=== PATIENT | male | born 1975 | race Caucasian/White ===

== ENCOUNTER 2020-10-29 12:10 | Emergency (ER) | payer OTHER ==
[2020-10-29 12:27] VITALS: BP 114/69; PULSE 80; TEMP 97.6; BMI 27.1
[2020-10-29] MEDS ORDERED: KETOROLAC TROMETHAMINE 60 MG/2 ML VIAL IM ONE (12:54)
[2020-10-29] MEDS ORDERED: CYCLOBENZAPRINE HCL 10 MG TABLET (FP) PO ONE (12:55)
[2020-10-29] MEDS ORDERED: CYCLOBENZAPRINE HCL 10 MG TABLET (FP) ONE (12:56)
[2020-10-29] MEDS ORDERED: KETOROLAC TROMETHAMINE 60 MG/2 ML VIAL ONE (12:56)
== END 2020-10-29 13:12 | disposition home or self-care (01) ==
LOC: JERFT 12:10
PROC: 3E0233Z Introduction of Anti-inflammatory into Muscle, Percutaneous Approach (ICD-10-PCS; principal; 2020-10-29)
DX: M54.5 Low back pain (principal)
CPT/HCPCS: 99284-25

== ENCOUNTER 2021-10-27 12:48 | Emergency (ER) | payer OTHER ==
[2021-10-27 12:52] VITALS: BP 114/72; PULSE 78; TEMP 97.6; BMI 27.1
[2021-10-27] MEDS ORDERED: METHOCARBAMOL 500 MG TABLET PO ONE (13:10)
[2021-10-27] MEDS ORDERED: KETOROLAC TROMETHAMINE 30 MG/1 ML VIAL IM ONE (13:10)
[2021-10-27] MEDS ORDERED: KETOROLAC TROMETHAMINE 30 MG/1 ML VIAL ONE (13:22)
[2021-10-27] MEDS ORDERED: METHOCARBAMOL 500 MG TABLET ONE (13:22)
== END 2021-10-27 13:31 | disposition home or self-care (01) ==
LOC: JERFT 12:48
PROC: 3E0233Z Introduction of Anti-inflammatory into Muscle, Percutaneous Approach (ICD-10-PCS; principal; 2021-10-27)
DX: M54.05 Panniculitis affecting regions of neck and back, thoracolumbar region (principal)
CPT/HCPCS: 99284-25

== ENCOUNTER 2022-08-06 20:33 | Emergency (ER) | payer OTHER ==
[2022-08-06 20:38] VITALS: BP 126/86; PULSE 89; RESP 17; TEMP 98.1; BMI 27.1
[2022-08-06] MEDS ORDERED: LIDOCAINE PATCH REMOVAL MC SCH (22:00)
[2022-08-06] MEDS ORDERED: KETOROLAC TROMETHAMINE 30 MG/1 ML VIAL IM ONE (22:24)
[2022-08-06] MEDS ORDERED: diazePAM 5 MG TABLET PO ONE (22:25)
[2022-08-06] MEDS ORDERED: LIDOCAINE 5% TOPICAL PATCH TP ONE (22:25)
[2022-08-06] MEDS ORDERED: KETOROLAC TROMETHAMINE 30 MG/1 ML VIAL ONE (22:51)
[2022-08-06] MEDS ORDERED: diazePAM 5 MG TABLET ONE (22:51)
[2022-08-06] MEDS ORDERED: LIDOCAINE 5% TOPICAL PATCH ONE (22:51)
== END 2022-08-07 00:20 | disposition left against medical advice (07) ==
LOC: JER 20:33
PROC: 3E0233Z Introduction of Anti-inflammatory into Muscle, Percutaneous Approach (ICD-10-PCS; principal; 2022-08-06)
DX: M54.50 Low back pain, unspecified (principal)
CPT/HCPCS: 99284-25

== ENCOUNTER 2023-09-22 14:14 | Emergency (ER) | payer OTHER ==
[2023-09-22 15:38] VITALS: BMI 28.5
[2023-09-22] MEDS ORDERED: IBUPROFEN 400 MG TABLET (FP) PO PRN ×2 (16:25→16:34)
[2023-09-22] MEDS ORDERED: KETOROLAC TROMETHAMINE 30 MG/1 ML VIAL ONE (18:08)
[2023-09-22] MEDS ORDERED: ACETAMINOPHEN 500 MG TABLET (FP) ONE ×2 (18:10)
[2023-09-22] MEDS: KETOROLAC TROMETHAMINE 30 MG/1 ML VIAL IM ONE (18:15)
[2023-09-22] MEDS: ACETAMINOPHEN 500 MG TABLET (FP) PO ONE (18:17)
[2023-09-22 18:26] VITALS: BP 119/72; PULSE 72; RESP 18; TEMP 98.8
== END 2023-09-22 18:46 | disposition home or self-care (01) ==
LOC: JER 14:14
PROC: 3E0233Z Introduction of Anti-inflammatory into Muscle, Percutaneous Approach (ICD-10-PCS; principal; 2023-09-22)
DX: M25.562 Pain in left knee (principal); S83.92XA Sprain of unspecified site of left knee, initial encounter; W01.0XXA Fall on same level from slipping, tripping and stumbling without subsequent striking against object, initial encounter
CPT/HCPCS: 73564-TC-LT-FY; 99284-25